=== PATIENT | female | born 1980 | race Caucasian/White ===

== ENCOUNTER 2020-05-23 15:03 | Emergency (ER) | payer OTHER, SELFPAY ==
[2020-05-23 15:06] VITALS: BP 134/82; PULSE 94; RESP 18; TEMP 36.7; O2SAT 94; BMI 27.4
--- NOTE | 2020-05-23 15:14 | CT_ITS ---
WS: [id number] CT HEAD NONCONTRAST HISTORY: Symptoms of Acute Stroke, weakness and dizziness for 3 days. TECHNIQUE: Contiguous axial imaging performed through the brain in 2.5 mm imaging. Bone and soft tiss ue windows. Sagittal and coronal reformats reviewed. All CT scans at [facility] use at le ast one of these dose optimization techniques: automated exposure control; mA and/or kV adjustment pe r patient size (includes targeted exams where dose is matched to clinical indication); or iterative r econstruction. DLP: 824.66 mGy.cm COMPARISON: 04/23/2017 No acute intracranial hemorrhage, midline shift or mass effect. No atrophy or prior infarcts or herniation. Ventricles: Normal size with no hydrocephalus. No inferior displacement of cerebellar tonsils. Clivus and pituitary gland are negative. Paranasal sinuses: As visualized are clear. Mastoid air cells: Well pneumatized. Calvarium and scalp: Skull is intact with no soft tissue edema or swelling. CT/CT head wo con* [id number] IMPRESSION: Negative head CT.
--- NOTE | 2020-05-23 15:14 | ECG_ITS ---
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 Measurements Intervals [place] Rate: 75 P: 60 NC: 134 QRS: 70 QRSD: 87 T: 44 QT: 381 QTc: 428 Interpretive Statements SINUS RHYTHM Compared to ECG 12/15/2017 20:36:53 No significant changes Electronically Signed On 05-23-2020 18:59:33 CDT by Ana Willoughby M.D. [email or web address].[email or web address]/NU/[id number] f
[2020-05-23 15:22] LABS: Add Urine Microscopic? NO
--- NOTE | 2020-05-23 15:25 | W.ED.WEAKNES ---
HPI - Weakness General: Chief complaint: Weakness Stated complaint: possible tia/sent by doctor Time Seen by Provider: 05/23/20 15:07 History of Present Illness: HPI Narrative: 39-year-old female comes in complaining of right-sided numbness and tingling she has a little bit of weakness in her right leg and hand is actually gotten better than what it was. She states the symptoms started early this morning. She presents about 10 to 12 hours after onset. Initial evaluation NIH stroke score of 1, however she does not any difficulty with [id number] but has a very slight perceptible weakness in the right leg but no other weakness. MD Complaint: focal weakness, numbness and tingling Onset (ago): day(s) Duration: intermittent Location: LUE and left hand Migration: none Severity: mild Quality: tingling and numbness Relieving factors: none Exacerbating factors: none Associated symptoms: Denies chest pain, chills, confusion, melena, decreased appetite, diaphoresis, dysuria, easy bruising, fever(s), headache(s), myalgias, nausea, short of breath, syncope or vomiting Review of Systems Const: Denies: fever(s), chills or diaphoresis ENMT: Denies: throat pain, ear or mastoid pain, nasal discharge or nasal congestion Card: Denies: chest pain or syncope Resp: Denies: dyspnea, productive cough or non-productive cough GI: Denies: nausea, vomiting or melena : Denies: dysuria Skin/Breast: Denies: rash or pruritus Neuro: Denies: headache(s) or confusion Memo/Lymph: Denies: easy bruising PFSH ED PFSH: Medical History No pertinent past medical history Surgical History Hx of section Hx of cholecystectomy Hx of hysterectomy, total Family History Father Diabetes Social History Smoking and tobacco status: current every day smoker cigarettes Packs smoked per day: 0.5 Second hand smoke exposure: Yes Alcohol intake: never Desire information about alcohol rehabilitation?: No Desire information about substance/drug rehabilitation?: No Adopted: No Caregiver/support person: No Lives independently: Yes Household members: spouse Housing: House Marital status: Number of children: 6 Pets and animals: No History of recent travel: No Physical Exam Const: COMMON NORMALS: no acute distress GENERAL APPEARANCE: cooperative and comfortable ORIENTATION/CONSCIOUSNESS: Yes awake, Yes oriented to person, Yes oriented to place and Yes oriented to time HENMT: COMMON NORMALS: normocephalic, atraumatic and hearing grossly normal bilaterally HEAD & SCALP: normocephalic and atraumatic Eye: COMMON NORMALS: Equal, round and reactive pupils present, EOMs intact bilaterally, conjunctivae normal and no scleral icterus CONJUNCTIVA: Yes conjunctivae normal PUPIL: Yes Equal, round and reactive pupils present Neck/C-Spine: COMMON NORMALS: full ROM, no lymphadenopathy, supple and no JVD Lymph: LYMPHATIC: no lymphadenopathy noted and no lymphedema noted Resp: COMMON NORMALS: normal respiratory effort, No retractions, No use of accessory muscles and clear to auscultation bilaterally AUSCULTATION: clear to auscultation bilaterally Cardio: COMMON NORMALS: no JVD, regular rate, regular rhythm and No murmurs present (Cardio) RATE: regular rate RHYTHM: regular rhythm GI: COMMON NORMALS: Soft to palpation and No hepatosplenomegaly present AUSCULTATION: Yes normoactive bowel sounds PALPATION: Yes Soft to palpation, No Tenderness to palpation present (GI), No Guarding due to palpation present (GI) and Yes No hepatosplenomegaly present Extremity: COMMON NORMALS: normal to inspection, capillary refill normal, no clubbing, cyanosis or edema, no calf tenderness and no pedal edema Neuro: SENSORIUM/ORIENTATION: Yes oriented to person, Yes oriented to place and Yes oriented to time OTHER: Normal sensation right compared to left patient has ability to do [id number] bilaterally but has a little bit of perceptible weakness in the right leg no weakness in the right arm. Skin: COMMON NORMALS: no rashes or lesions noted GENERAL SKIN EXAM: no rashes or lesions noted Course Vital Signs: Vital signs: Vital Signs Temperature 98.1 F 05/23/20 15:06 Pulse Rate 58 L 05/23/20 17:13 Respiratory Rate 14 05/23/20 17:13 Blood Pressure 121/71 08/17/20 17:13 Pulse Oximetry 97 05/23/20 17:13 MDM - Weakness MDM Narrative: Medical decision making narrative: Offered patient option of being placed on observation for this for further evaluation she declines vital signs are good. We will start her on a baby aspirin daily and set her up for MRI and neurology evaluation return if has any further problems or change in symptoms Lab Data: Labs: Lab Results 05/23/20 05/23/20 05/23/20 Range/Units 15:16 15:34 15:34 WBC 10.1 H (4.0-10.0) 10^3/ uL RBC 5.17 (4.1-5.3) 10^6/u L Hgb 15.4 H (11.5-15.3) g/dL Hct 47.8 H (37.0-47.0) % MCV 92.5 (81-99) fL MCH 29.8 (28.0-34.0) pg MCHC 32.2 (30.0-36.0) g/dL RDW 12.9 (12.1-15.1) % Plt Count 316 (130-400) 10^3/c mm MPV 10.0 (7.4-10.4) fL Neut % (Auto) 64.0 % Lymph % (Auto) 28.6 % [place] % (Auto) 5.2 % Eos % (Auto) 1.1 % Baso % (Auto) 0.8 % Neut # (Auto) 6.48 (1.8-7.7) 10^3/u L Lymph # (Auto) 2.9 (0.8-4.8) 10^3/u L [place] # (Auto) 0.5 (0.2-0.9) 10^3/u L Eos # (Auto) 0.1 (0.0-0.8) 10^3/u L Baso # (Auto) 0.1 (0.0-0.1) 10^3/u L Nucleated RBC % (a uto) 0 % Nucleated RBCs # 0.0 /100WBC PT 13.20 (12.1-14.9) SECO NDS INR 0.97 (0.8-1.2) APTT 28.4 (23.9-36.7) SECO NDS Sodium (136-145) mmol/L Potassium (3.5-5.1) mmol/L Chloride (98-107) mmol/L Carbon Dioxide (22-29) mmol/L Anion Gap (5-19) BUN (6-20) mg/dL Creatinine (0.5-0.9) mg/dL GFR Calculation (90-130) mL/min Glucose (65-115) mg/dL POC Glucose (70-110) mg/dL Calculated Osmolal ity (285-295) mOsm/k g Calcium (8.5-10.5) mg/dL Total Bilirubin (0.15-1.2) mg/dL AST (0-32) U/L ALT (0-33) U/L Alkaline Phosphata se (35-105) IU/L Total Protein (6.6-8.7) g/dL Albumin (3.5-5.2) g/dL Globulin (1.3-4.6) g/dL Urine Color Yellow (Yellow) Urine Appearance Clear (CLEAR) Urine pH 6 (5-7) Ur Specific Gravit y 1.010 (1.005-1.030) Urine Protein Neg (Negative) Urine Glucose (UA) Norm (Normal) Urine Ketones Negative (Negative) Urine Blood Neg (Negative) Urine Nitrate Negative (Negative) Urine Bilirubin Neg (NEGATIVE) Urine Urobilinogen Norm (Negative) mg/dL Ur Leukocyte Dominique ase Negative (Negative) 05/23/20 05/23/20 Range/Units 15:34 15:45 WBC (4.0-10.0) 10^3/ uL RBC (4.1-5.3) 10^6/u L Hgb (11.5-15.3) g/dL Hct (37.0-47.0) % MCV (81-99) fL MCH (28.0-34.0) pg MCHC (30.0-36.0) g/dL RDW (12.1-15.1) % Plt Count (130-400) 10^3/c mm MPV (7.4-10.4) fL Neut % (Auto) % Lymph % (Auto) % [place] % (Auto) % Eos % (Auto) % Baso % (Auto) % Neut # (Auto) (1.8-7.7) 10^3/u L Lymph # (Auto) (0.8-4.8) 10^3/u L [place] # (Auto) (0.2-0.9) 10^3/u L Eos # (Auto) (0.0-0.8) 10^3/u L Baso # (Auto) (0.0-0.1) 10^3/u L Nucleated RBC % (a uto) % Nucleated RBCs # /100WBC PT (12.1-14.9) SECO NDS INR (0.8-1.2) APTT (23.9-36.7) SECO NDS Sodium 140 (136-145) mmol/L Potassium 4.0 (3.5-5.1) mmol/L Chloride 106 (98-107) mmol/L Carbon Dioxide 24 (22-29) mmol/L Anion Gap 14.0 (5-19) BUN 12 (6-20) mg/dL Creatinine 0.7 (0.5-0.9) mg/dL GFR Calculation 93.2 (90-130) mL/min Glucose 112 (65-115) mg/dL POC Glucose 106 (70-110) mg/dL Calculated Osmolal ity 287 (285-295) mOsm/k g Calcium 8.9 (8.5-10.5) mg/dL Total Bilirubin 0.2 (0.15-1.2) mg/dL AST 19 (0-32) U/L ALT 16 (0-33) U/L Alkaline Phosphata se 70 (35-105) IU/L Total Protein 7.0 (6.6-8.7) g/dL Albumin 4.3 (3.5-5.2) g/dL Globulin 2.7 (1.3-4.6) g/dL Urine Color (Yellow) Urine Appearance (CLEAR) Urine pH (5-7) Ur Specific Gravit y (1.005-1.030) Urine Protein (Negative) Urine Glucose (UA) (Normal) Urine Ketones (Negative) Urine Blood (Negative) Urine Nitrate (Negative) Urine Bilirubin (NEGATIVE) Urine Urobilinogen (Negative) mg/dL Ur Leukocyte Dominique ase (Negative) Discharge Plan Discharge Patient Disposition: Home Clinical Impression: Right leg weakness Condition: Stable Prescriptions: New aspirin 81 mg tablet,delayed release (DR/EC) 81 mg PO DAILY Qty: 30 RF: 0 No Action Tylenol 325 mg Tablet 325 mg PO QID PRN (Reason: Pain) RF: 0 ibuprofen 200 mg Tablet 200 mg PO Q6H PRN (Reason: Pain) RF: 0 Discharge Orders: Discharge Order (Routine); Ordered 05/23/20 Ordered By: Alejandro Fontenot Referrals: Desmond Diehl, [employer]DLE[employer] DEVELOPER-C [Primary Care Provider] - Discharge Diet: Usual diet Discharge Activity: Resume usual activity Activity Restrictions/Additional Instructions: Case management will call to set up a MRI of the head and follow-up with neurology Discharge Date/Time: 05/23/20 17:14 Coding Level of Care Code ED Trick Rodeo Rider for g Fwd Exam Comprehensive NIH stroke score NIHSS Level Of Consciousness - 1a: 0 Level Of Consciousness Questions - 1b: Both Correct Level Of Consciousness Commands - 1c: Both Correct Best Gaze - 2: Normal Visual Fleming - 3: No Visual Loss Facial Palsy - 4: Normal Motor Arm Right - 5: No Drift Motor Arm Left - 5: No Drift Motor Leg Right - 6: No Drift Motor Leg Left - 6: No Drift Limb Ataxia - 7: Present In One Limb Sensory - 8: Normal Best Language - 9: No Aphasia Dysarthia - 10: Normal Extinction And Inattention - 11: 0 Score Total Score: 1
[2020-05-23 15:38] VITALS: BP 129/89; PULSE 66; RESP 18; O2SAT 98
[2020-05-23 15:39] LABS: Basophils # 0.1 10^3/uL (0.0-0.1); Basophils % 0.8 %; Eosinophils # 0.1 10^3/uL (0.0-0.8); Eosinophils % 1.1 %; Hematocrit 47.8 % (37.0-47.0); Hemoglobin 15.4 g/dL (11.5-15.3); Lymphocytes # 2.9 10^3/uL (0.8-4.8); Lymphocytes % 28.6 %; Mean Corpuscular HGB Conc 32.2 g/dL (30.0-36.0); Mean Corpuscular Hemoglobin 29.8 pg (28.0-34.0); Mean Corpuscular Volume 92.5 fL (81-99); Monocytes # 0.5 10^3/uL (0.2-0.9); Monocytes % 5.2 %; Neutrophils # 6.48 10^3/uL (1.8-7.7); Nucleated Red Blood Cells % 0 %; Platelet Count 316 10^3/cmm (130-400); Red Blood Count 5.17 10^6/uL (4.1-5.3); Red Cell Distribution Width 12.9 % (12.1-15.1); White Blood Count 10.1 10^3/uL (4.0-10.0)
[2020-05-23 15:41] VITALS: O2SAT 99
[2020-05-23 15:42] LABS: Bilirubin Urine Neg (NEGATIVE); Blood Urine Neg (Negative); Glucose Urine UA Norm (Normal); Ketones Urine Negative (Negative); Leukocyte Esterase Urine Negative (Negative); Nitrate Urine Negative (Negative); Protein Urine Neg (Negative); Urine Appearance Clear (CLEAR); Urine Color Yellow (Yellow); Urobilinogen Urine Norm (Negative); pH Urine 6 (5-7)
[2020-05-23 15:58] LABS: Glucose Point of Care 106 mg/dL (70-110)
[2020-05-23 16:08] LABS: INR 0.97 (0.8-1.2)
[2020-05-23 16:09] LABS: Partial Thromboplastin Time 28.4 SECONDS (23.9-36.7)
[2020-05-23 16:10] LABS: Alanine Aminotransferase 16 U/L (0-33); Albumin Level 4.3 g/dL (3.5-5.2); Alkaline Phosphatase 70 IU/L (35-105); Aspartate Amino Transferase 19 U/L (0-32); Blood Urea Nitrogen 12 mg/dL (6-20); Calcium 8.9 mg/dL (8.5-10.5); Carbon Dioxide 24 mmol/L (22-29); Chloride 106 mmol/L (98-107); Globulin 2.7 g/dL (1.3-4.6); Glomerular Filtration Rate 93.2 mL/min (90-130); Glucose 112 mg/dL (65-115); Osmolality Calculated 287 mOsm/kg (285-295); Sodium 140 mmol/L (136-145); Total Bilirubin 0.2 mg/dL (0.15-1.2)
[2020-05-23 17:13] VITALS: BP 121/71; PULSE 58; RESP 14; O2SAT 97
--- NOTE | 2020-05-24 13:39 | DCPLANNER ---
park recreation manager had message to schedule an outpatient MRI for patient. park recreation manager faxed order to centralized scheduling. Centralized scheduling will call patient with appointment information. park recreation manager will call for appointment information.
--- NOTE | 2020-05-27 13:47 | DCPLANNER ---
Patient has a follow up appointment for an MRI scheduled for Monday, June 08, 2020 at 11:45. environmental research project manager called the office of Dr. Raya, spoke with Peg, was told that patient can be seen by Aurelia, will have to speak with Maritza to schedule appointment. environmental research project manager will call and speak with Maritza next week.
--- NOTE | 2020-06-08 12:33 | DCPLANNER ---
Addendum entered by Ana Mccabe 06/08/20 14:59: Domo from the office of Aurelia Busby called clinical case manager stating that a follow up appointment has been scheduled for June at 9:00, clinic called patient and informed patient of the scheduled appointment. Original Note: graphic manager called the neurology clinic, spoke with Domo with [facility] Bus[facility]. graphic manager was told that patients information would be printed and reviewed. Clinic will call patient with appointment information.
--- NOTE | 2020-06-08 12:35 | DCPLANNER ---
Patient did attend MRI scheduled for 06.08.20.
--- NOTE | 2020-07-08 11:01 | DCPLANNER ---
Patient had a follow up appointment scheduled for 06.16.[address] Raya - patient did attend appointment.
== END 2020-05-23 17:14 | disposition home or self-care (01) ==
PROVIDERS: Emergency Provider Family Medicine; PCP Nurse Practitioner
DX: R53.1 Weakness (principal); F17.210 Nicotine dependence, cigarettes, uncomplicated
CPT/HCPCS: 12345; 36415; 36416; 70450; 80053; 81003; 82962; 85025; 85610; 85730; 93005; 99283; 99284

== ENCOUNTER 2020-06-08 10:00 | Outpatient (CLI) | payer OTHER, SELFPAY ==
--- NOTE | 2020-06-08 10:07 | MR_ITS ---
WS: [id number] MRI BRAIN WITH AND WITHOUT CONTRAST HISTORY: RIGHT SIDED NUMBNESS COMPARISON: 05/23/2020 TECHNIQUE: Multiplanar imaging performed through the brain with Prohance 17 ml's IV. No acute infarcts are seen. Dunn-white matter differentiation is well preserved. Bearing minimal T2 a nd FLAIR signal subcortical signal intensities. No prior infarcts. No mass effect. No susceptibility artifacts or prior lacunar infarcts. Ventricles and extra-axial spaces are normal. Clivus and pituitary gland are normal. Visualized posterior fossa and brainstem are also normal. Postcontrast images are negative for masses or vascular malformations. Dural venous sinuses are normal. Paranasal sinuses: Small mucous retention cyst floor of the LEFT maxillary sinus. Mastoid air cells: Normal. Calvarium and scalp: Normal. MR/MR head wo/w con [id number] IMPRESSION: 1. No acute infarct. 2. No enhancing masses. 3. No abnormalities of significance detected.
== END 2020-06-08 10:01 | disposition home or self-care (01) ==
LOC: RADSHAW 10:05
PROVIDERS: PCP Nurse Practitioner; Visit Provider Family Medicine
DX: R20.0 Anesthesia of skin (principal)
CPT/HCPCS: 70553; A9579

== ENCOUNTER → 2020-06-16 08:54 | Outpatient (BNVA) | payer OTHER, SELFPAY | PROVIDERS: PCP Nurse Practitioner; Referring Provider Family Medicine; Visit Provider Licensed Practical Nurse | DX: R53.1 Weakness (principal); R51 Headache; F17.210 Nicotine dependence, cigarettes, uncomplicated | CPT/HCPCS: 99204 ==

== ENCOUNTER 2020-06-16 10:09 | Outpatient (CLI) | payer OTHER, SELFPAY ==
[2020-06-16 11:17] LABS: C Reactive Protein 5.3 mg/L (0.0-4.9); Vitamin B12 774 pg/mL (232-1245)
[2020-06-16 11:31] LABS: Erythrocyte Sedimentation Rate 8 mm/hr (0-15)
== END 2020-06-16 10:10 | disposition home or self-care (01) ==
LOC: LAB 10:13
PROVIDERS: Visit Provider Licensed Practical Nurse
DX: R51 Headache (principal); R53.1 Weakness
CPT/HCPCS: 36415; 82607; 84443; 85651; 86140

== ENCOUNTER 2020-06-29 09:43 | Outpatient (CLI) | payer OTHER, SELFPAY ==
--- NOTE | 2020-06-29 10:00 | CT_ITS ---
WS: [id number] CT CERVICAL SPINE HISTORY: Gait instability TECHNIQUE: Contiguous 2.5 mm axial imaging performed through the entire cervical spine. Sagittal and coronal reformats also performed. All CT scans at [facility] use at least one of these do se optimization techniques: automated exposure control; mA and/or kV adjustment per patient size (inc ludes targeted exams where dose is matched to clinical indication); or iterative reconstruction. DLP: 1512.63 mGycm COMPARISON: None available. Mild LEFT convex curvature cervical spine. Posterior alignment is normal. Craniocervical junction, at lantodental interval and C1-C2 alignment is normal. C2-C3: Shallow central disc protrusion. C3-C4: Minimal hypertrophic osteophyte formation posterior LEFT vertebral body. No stenosis. C4-C5: Normal. C5-C6: Normal. C6-C7: Normal. C7-T1: Normal. Soft tissues are normal. Mild thyromegaly. Lung apices are clear. CT/CT cervical spin wo con* [id number] IMPRESSION: 1. No cervical spine stenosis or disc protrusions or significant herniation. 2. Very mild LEFT convex curvature cervical spine. 3. Thyromegaly, unchanged since 06/02/2016.
== END 2020-06-29 09:44 | disposition home or self-care (01) ==
LOC: RADWPI 09:47
PROVIDERS: Family Provider Nurse Practitioner; PCP Nurse Practitioner; Visit Provider Licensed Practical Nurse
DX: R26.89 Other abnormalities of gait and mobility (principal); E01.0 Iodine-deficiency related diffuse (endemic) goiter; M43.9 Deforming dorsopathy, unspecified
CPT/HCPCS: 72125

== ENCOUNTER → 2020-06-30 08:00 | Outpatient (BNVA) | payer OTHER, SELFPAY | PROVIDERS: Family Provider Nurse Practitioner; PCP Nurse Practitioner; Visit Provider Licensed Practical Nurse | DX: R53.1 Weakness (principal); M50.90 Cervical disc disorder, unspecified, unspecified cervical region; R51 Headache; F17.210 Nicotine dependence, cigarettes, uncomplicated | CPT/HCPCS: 99213 ==

== ENCOUNTER 2020-07-06 13:16 | Outpatient (CLI) | payer OTHER, SELFPAY ==
--- NOTE | 2020-07-06 13:00 | XR_ITS ---
WS: [id number] CERVICAL SPINE FLEXION EXTENSION TECHNIQUE: 3 views of the cervical spine: lateral neutral, flexion and extension views. CLINICAL INFORMATION: Neck pain COMPARISON: None. FINDINGS: Straightening of the normal cervical lordosis. Slight anterolisthesis C3 on C4 and C4 on C5 measuring 3.5 mm at C3-C4 and 2.7 mm at C4-5. This returns to neutral on extension. Posterior elements are normal. No other significant findings. XR/XR cervical spine fl/ex [id number] IMPRESSION: Mild flexion instability at C3-4 and C4-5 described above.
== END 2020-07-06 13:17 | disposition home or self-care (01) ==
LOC: RADWPI 13:17
PROVIDERS: Family Provider Nurse Practitioner; PCP Nurse Practitioner; Visit Provider Licensed Practical Nurse
DX: M54.2 Cervicalgia (principal); M53.2X2 Spinal instabilities, cervical region
CPT/HCPCS: 72040

== ENCOUNTER 2020-08-18 09:49 | Emergency (ER) | payer OTHER, SELFPAY ==
[2020-08-18 09:55] VITALS: BP 144/89; PULSE 75; RESP 18; TEMP 36.8; O2SAT 98; BMI 31.2
--- NOTE | 2020-08-18 10:06 | ECG_ITS ---
[facility] Test Date: 2020-08-18 Pat Name: Leny Hinojosa Department: Room: Gender: Female Chaperone: : 1980 Requested By: Frank Cox Order Number: [id number] Benjamin MD: Ajay Huizar M.D. Measurements Intervals [place] Rate: 62 P: 70 GA: 142 QRS: 90 QRSD: 87 T: 59 QT: 405 QTc: 412 Interpretive Statements SINUS RHYTHM Compared to ECG 05/23/2020 15:26:26 No significant changes Electronically Signed On 08-19-2020 20:06:07 ROLL COATING MACHINE OPERATOR by Ajay Huizar M.D. [email or web address] medical [email or web address] Medical [email or web address]/store/OM/[id number]
--- NOTE | 2020-08-18 10:06 | XR_ITS ---
WS: [id number] Portable AP upright chest, 08/18/2020 Clinical Data: cp Comparison: PA and lateral chest, 12/15/2017. Findings: No nodules, masses or effusions are seen. The heart is normal. The pulmonary vascularity is not increased. No pneumonia or pneumothorax is seen. XR/XR chest 1V portable [id number] Impression: Negative chest.
--- NOTE | 2020-08-18 10:14 | W.ED.GENADLT ---
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 She states she been having pain over left sternum since then. She states she thinks she pulled a muscle as it is much worse with lifting or moving. She states worse with palpation to she states pain is sharp in nature and rates a 5 out of 10. Denies any shortness of breath. Associated symptoms: Reports chest pain; Deny dyspnea, headache(s), nausea, rash or vomiting Review of Systems Const: Denies: fever(s), chills, body aches or change in appetite Eyes: Denies: blurry vision or eye discomfort ENMT: Denies: throat pain or dental pain Card: Reports: chest pain Resp: Denies: dyspnea GI: Denies: abdominal pain, nausea, vomiting or diarrhea : Denies: dysuria Musc: Denies: neck pain or back pain Skin/Breast: Denies: rash Neuro: Denies: headache(s) Psych: Denies: depression Memo/Lymph: Denies: easy bruising All/Imm: Denies: urticaria PFSH ED PFSH: Medical History Acute right-sided weakness Headache Spondylolisthesis, acquired Surgical History Hx of section Hx of cholecystectomy Hx of hysterectomy, total Family History Father Diabetes Social History Smoking and tobacco status: current every day smoker cigarettes Packs smoked per day: 0.5 Alcohol intake: never Household members: spouse and children Marital status: Current occupational status: employed 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 History of recent travel: No Physical Exam Const: COMMON NORMALS: no acute distress, patient oriented x3 and healthy appearing HENMT: COMMON NORMALS: normocephalic and atraumatic HEAD & SCALP: normocephalic and atraumatic Eye: COMMON NORMALS: Equal, round and reactive pupils present and EOMs intact bilaterally PUPIL: Yes Equal, round and reactive pupils present Neck/C-Spine: COMMON NORMALS: full ROM and supple Chest: COMMONS NORMALS: normal inspection of the chest OTHER: Point tender over left chest Resp: COMMON NORMALS: normal respiratory effort, No retractions, No use of accessory muscles and clear to auscultation bilaterally AUSCULTATION: clear to auscultation bilaterally Cardio: COMMON NORMALS: regular rate, regular rhythm and No murmurs present (Cardio) RATE: regular rate RHYTHM: regular rhythm GI: COMMON NORMALS: Normal to inspection, nondistended, normoactive bowel sounds present, Soft to palpation, non-tender and no masses PALPATION: Yes Soft to palpation Extremity: COMMON NORMALS: normal to inspection and full ROM Neuro: COMMON NORMALS: patient oriented x3, moves all extremities and no focal motor deficits Psych: COMMON NORMALS: mental status grossly normal, Normal thought process present and cooperative THOUGHT PROCESS: Normal thought process present Skin: COMMON NORMALS: no rashes or lesions noted and no wounds GENERAL SKIN EXAM: no rashes or lesions noted Course Vital Signs: Vital signs: Vital Signs Temperature 98.2 F 08/18/20 09:55 Pulse Rate 75 08/18/20 09:55 Respiratory Rate 18 08/18/20 09:55 Blood Pressure 144/89 08/18/20 09:55 Pulse Oximetry 98 08/18/20 09:55 MDM - General Adult MDM Narrative: Medical decision making narrative: Leny presents here with chest pain that is muscular in nature. We will place her on anti-inflammatories and muscle relaxants. She is to ice as well. She is to follow-up with PCP and return if worsening. She has no signs of cardiac cause. EKG Data^: EKG 1: Attestation: I personally reviewed and interpreted this EKG as follows: EKG interpretation date: 08/18/20 EKG interpretation time: 10:32 Interpretation: nsr hr [address] or t wave abnormalities qrs 87 qtc 409 Discharge Plan Discharge Patient Disposition: Home Clinical Impression: Chest wall pain Condition: Stable Prescriptions: New Robaxin-750 750 mg tablet 750 mg PO Q6H Qty: 30 RF: 0 Naprosyn 500 mg tablet 500 mg PO BID PRN (Reason: pain) Qty: 20 RF: 0 No Action Tylenol 325 mg Tablet 325 mg PO QID PRN (Reason: Pain) RF: 0 ibuprofen 200 mg Tablet 200 mg PO Q6H PRN (Reason: Pain) RF: 0 aspirin 81 mg tablet,delayed release (DR/EC) 81 mg PO DAILY Qty: 30 RF: 0 Discharge Orders: Discharge Order (Routine); Ordered 08/18/20 Ordered By: Frank Cox Referrals: Desmond Diehl FNP-C [Primary Care Provider] - 1-3 days Discharge Diet: Advance as tolerated Discharge Activity: Resume usual activity Patient Instructions: Chest Pain (ED) Coding Level of Care Code ED Certified Ophthalmic Surgical Assistant for Guillermo Fwd Exam Comprehensive
== END 2020-08-18 10:43 | disposition home or self-care (01) ==
PROVIDERS: Emergency Provider Emergency Medicine; PCP Nurse Practitioner
DX: R07.89 Other chest pain (principal); Z79.82 Long term (current) use of aspirin; F17.210 Nicotine dependence, cigarettes, uncomplicated
CPT/HCPCS: 12345; 71045; 93005; 99281; 99283

== ENCOUNTER 2021-07-05 10:11 | Outpatient (CLI) | payer OTHER, SELFPAY ==
--- NOTE | 2021-07-05 10:18 | XR_ITS ---
WS: [id number] Exam: XR lumbar spine 2-3V* [id number] Date/Time of Exam: 07/05/2021 10:34 AM Reason For Exam: LS PAIN POSITIVE SLR W/DECREASED ROM Findings: In the AP projection, the lumbar spine is straight. The sacroiliac joints are open. The facet struc tures are bilaterally symmetrical. In the lateral projection, the lumbar curve is well maintained. The intervertebral disc spaces are intact. No fractures or anomalies of the lumbar spine are noted. XR/XR lumbar spine 2-3V* [id number] IMPRESSION: Negative lumbar spine.
== END 2021-07-05 10:12 | disposition home or self-care (01) ==
PROVIDERS: PCP Nurse Practitioner; Visit Provider Dermatology
DX: Z02.71 Encounter for disability determination (principal); M54.5 Low back pain
CPT/HCPCS: 72100

== ENCOUNTER 2021-07-14 09:25 | Outpatient (CLI) | payer SELFPAY ==
--- NOTE | 2021-07-14 09:37 | XR_ITS ---
WS: [id number] RIGHT KNEE: 3 VIEW(S) TECHNIQUE: AP, oblique(s) and lateral. HISTORY: M25.561 - Pain in right knee COMPARISON: None available. No fracture or dislocation. No joint space narrowing or osteophytes. No joint effusion. No soft tissue abnormality. XR/XR knee RT 3V* [id number] IMPRESSION: Normal RIGHT knee.
== END 2021-07-14 09:26 | disposition home or self-care (01) ==
PROVIDERS: PCP Nurse Practitioner; Visit Provider Nurse Practitioner
DX: M25.561 Pain in right knee (principal)
CPT/HCPCS: 73562

== ENCOUNTER → 2022-04-05 10:53 | Outpatient (BNVA) | payer SELFPAY | PROVIDERS: PCP Nurse Practitioner; Visit Provider Nurse Practitioner Family | DX: N64.4 Mastodynia (principal); N63.20 Unspecified lump in the left breast, unspecified quadrant | CPT/HCPCS: 80053 ==

== ENCOUNTER 2022-04-17 14:57 | Outpatient (CLI) | payer SELFPAY ==
--- NOTE | 2022-04-17 15:10 | MM_ITS ---
WS: [id number] BILATERAL 3D TOMOSYNTHESIS DIGITAL DIAGNOSTIC MAMMOGRAPHY WITH CAD CLINICAL INFORMATION: left breast lump, pain and swelling HISTORY: LEFT breast pain COMPARISON: None. TECHNIQUE: Bilateral CC, MLO, and ML views. FINDINGS: The breasts are composed of heterogeneous fibroglandular density, which can limit the detection of sm all underlying mass lesions. Palpable marker upper outer LEFT breast. Dense underlying parenchymal ti ssue. Ultrasound of this area described below. RIGHT breast is unremarkable in appearance. ULTRASOUND BREAST LEFT TECHNIQUE: Ultrasound LEFT breast focused area of concern. CLINICAL INFORMATION: left breast lump, pain and swelling FINDINGS: Ultrasound LEFT breast at the 12-6 position. A few incidental dilated ducts compatible with ductal ec cailin. No abnormalities at the 12 to 1:00 position except underlying dense parenchymal tissue. Complex cyst or debris-filled duct at the 2:00 position 1 cm from the nipple measuring 10 x 4 x 5 mm. This is probably benign and recommend 6 month follow-up of this area. Incidental simple cyst at the 3:00 position 1 cm from the nipple measuring 6.4 x 3.3 x 6.6 mm. MM/[place] [id number] IMPRESSION: BI-RADS: 3-Probably Benign FOLLOW UP: 6 Month Follow-up Recommend 6 month follow-up LEFT diagnostic mammography and ultrasound of the d ense breast tissue upper outer LEFT breast area of pain and complex cyst or jason ris-filled duct at the 2:00 position 1 cm from the nipple in the area of pain.
== END 2022-04-17 14:58 | disposition home or self-care (01) ==
PROVIDERS: PCP Nurse Practitioner Family; Visit Provider Nurse Practitioner Family
DX: N63.20 Unspecified lump in the left breast, unspecified quadrant (principal); R92.8 Other abnormal and inconclusive findings on diagnostic imaging of breast; N60.09 Solitary cyst of unspecified breast
CPT/HCPCS: 76642; 77062

== ENCOUNTER 2022-08-15 16:43 | Emergency (ER) | payer SELFPAY ==
--- NOTE | 2022-08-15 16:46 | XRR_ITS ---
PROCEDURE INFORMATION: Exam: XR Chest Exam date and time: 08/15/2022 5:50 PM Age: 41 years old Clinical indication: Pain; Angina pectoris and chest pressure; Additional info: Chest pain TECHNIQUE: Imaging protocol: Radiologic exam of the chest. Views: 1 view. COMPARISON: CR XR chest 1V portable [id number] 08/18/2020 10:08 AM FINDINGS: Lungs: Unremarkable. No consolidation. Pleural spaces: Unremarkable. No pleural effusion. No pneumothorax. Heart/Mediastinum: Unremarkable. No cardiomegaly. Bones/joints: Unremarkable. XR/XR chest 1V portable [id number] IMPRESSION: No acute findings.
[2022-08-15 16:50] VITALS: BP 145/73; PULSE 81; RESP 16; TEMP 36.8; O2SAT 99; BMI 29.9
[2022-08-15 17:05] VITALS: BP 143/71; PULSE 79; RESP 16; O2SAT 98
--- NOTE | 2022-08-15 17:10 | ECG_ITS ---
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 Measurements Intervals [place] Rate: 67 P: 55 VT: 143 QRS: 64 QRSD: 88 T: 42 QT: 395 QTc: 419 Interpretive Statements SINUS RHYTHM Compared to ECG 08/18/2020 10:32:54 No significant changes Electronically Signed On 08-16-2022 5:26:44 DIRECT SALES PROFESSIONAL by Kandy Clark M.D. [id number]
--- NOTE | 2022-08-15 17:12 | W.ED.CHESTPA ---
HPI - Chest Pain General: Chief Complaint: Chest Pain Stated Complaint: CP Time Seen by Provider: 08/15/22 16:45 Source: patient Mode of arrival: ambulatory History of Present Illness: 41-year-old female presents emergency room complaining of pain that began in her neck and radiated down into her left arm her fingers began to feel numb she had a little indigestion after that no actual chest pain her only symptoms now are in the arm. She has had some problems with her neck in the past no previous surgeries. States she had an MRI about a year ago. There is a CT in the old records but no MRI of the neck. There is an MRI of the head. CT did not show any stenosis or significant abnormality. Onset (ago): minute(s) Timing of current episode: episodic Prior episodes: Yes Onset: during rest Pain location: other (Neck radiating to the left arm) Quality: sharp Relieving factors: nothing Exacerbating factors: nothing Associated symptoms: Reports diaphoresis; Deny abdominal pain, dyspnea, fever(s), leg edema, nausea, palpitations, sense of impending doom, syncope or vomiting Treatment prior to arrival: none Review of Systems Const: Reports: diaphoresis; Denies: fever(s), chills, fatigue or malaise ENMT: Denies: throat pain, ear or mastoid pain, nasal discharge or nasal congestion Card: Denies: chest pain, palpitations or syncope Resp: Denies: dyspnea GI: Denies: abdominal pain, nausea or vomiting : Denies: flank pain, difficulty voiding, dysuria, urinary frequency or urinary urgency Musc: Reports: neck pain and extremity pain Skin/Breast: Denies: rash or pruritus [facility] ED PFSH: Medical History Acute right-sided weakness Cigarette smoker Headache Spondylolisthesis, acquired Surgical History Hx of section Hx of cholecystectomy Hx of hysterectomy, total Family History Father Diabetes Social History Smoking and tobacco status: current every day smoker (quit cig 3 months ago, but currently vapes) cigarettes Packs smoked per day: 0.5 Second hand smoke exposure: No Smoking risk assessment/counseling performed?: Yes Alcohol intake: never Desire information about alcohol rehabilitation?: No Counseling given: No Desire information about substance/drug rehabilitation?: No Counseling given: No Adopted: No Caregiver/support person: No Lives independently: Yes Household members: spouse and children Housing: House Marital status: Number of children: 6 service: No Current occupational status: employed Current occupation: [employer] Pets and animals: Yes History of recent travel: No Current gender identity: Female Physical Exam Const: GENERAL APPEARANCE: cooperative and comfortable ORIENTATION/CONSCIOUSNESS: Yes awake, Yes oriented to person, Yes oriented to place and Yes oriented to time HENMT: COMMON NORMALS: normocephalic, atraumatic and hearing grossly normal bilaterally HEAD & SCALP: normocephalic and atraumatic Neck/C-Spine: COMMON NORMALS: full ROM, no lymphadenopathy and supple Resp: COMMON NORMALS: normal respiratory effort, No retractions, No use of accessory muscles and clear to auscultation bilaterally AUSCULTATION: clear to auscultation bilaterally Cardio: COMMON NORMALS: regular rate, regular rhythm and No murmurs present (Cardio) RATE: regular rate RHYTHM: regular rhythm GI: COMMON NORMALS: Soft to palpation and No hepatosplenomegaly present AUSCULTATION: Yes normoactive bowel sounds PALPATION: Yes Soft to palpation, No Tenderness to palpation present (GI), No Guarding due to palpation present (GI) and Yes No hepatosplenomegaly present Extremity: COMMON NORMALS: normal to inspection, capillary refill normal, no clubbing, cyanosis or edema, no calf tenderness and no pedal edema Neuro: SENSORIUM/ORIENTATION: Yes oriented to person, Yes oriented to place and Yes oriented to time Skin: COMMON NORMALS: no rashes or lesions noted GENERAL SKIN EXAM: no rashes or lesions noted Course Vital Signs: Vital signs: Vital Signs Temperature 98.2 F 08/15/22 16:50 Pulse Rate 74 08/15/22 19:43 Respiratory Rate 14 08/15/22 19:43 Blood Pressure 136/70 08/15/22 19:43 Pulse Oximetry 98 08/15/22 19:43 Oxygen Delivery Vt thod 08/15/22 16:50 MDM - Chest Pain Medical Decision Making Labs imaging and EKG reviewed. No acute findings EKG shows sinus bradycardia without ischemic changes. Suspect based on patient's history and exam's more cervical radiculopathy. Initiate steroids and anti-inflammatories follow-up with her primary care doctor if not improving may need advanced imaging. Medical Records I reviewed the patient's medical records. Lab Data I reviewed the patient's lab results. 08/15/22 17:13 08/15/22 17:13 Radiology Impressions Chest X-Ray 08/15/22 16:46 IMPRESSION: No acute findings. Laboratory Results WBC 9.4 10^3/uL (4.0-10.0) 08/15/22 17:13 RBC 4.97 10^6/uL (4.1-5.3) 08/15/22 17:13 Hgb 14.5 g/dL (11.5-15.3) 08/15/22 17:13 Hct 43.4 % (37.0-47.0) 08/15/22 17:13 MCV 87.3 fl (81-99) 08/15/22 17:13 MCH 29.2 pg (28.0-34.0) 08/15/22 17:13 MCHC 33.4 g/dL (30.0-36.0) 08/15/22 17:13 RDW 12.5 % (12.1-15.1) 08/15/22 17:13 Plt Count 306 10^3/cmm (130-400) 08/15/22 17:13 MPV 9.6 fL (7.4-10.4) 08/15/22 17:13 Neut % (Auto) 59.2 % 08/15/22 17:13 Lymph % (Auto) 31.0 % 08/15/22 17:13 [place] % (Auto) 7.4 % 08/15/22 17:13 Eos % (Auto) 1.2 % 08/15/22 17:13 Baso % (Auto) 0.7 % 08/15/22 17:13 Neut # (Auto) 5.57 10^3/uL (1.8-7.7) 08/15/22 17:13 Lymph # (Auto) 2.9 10^3/uL (0.8-4.8) 08/15/22 17:13 [place] # (Auto) 0.7 10^3/uL (0.2-0.9) 08/15/22 17:13 Eos # (Auto) 0.1 10^3/uL (0.0-0.8) 08/15/22 17:13 Baso # (Auto) 0.1 10^3/uL (0.0-0.1) 08/15/22 17:13 Nucleated RBC % (auto) 0 % 08/15/22 17:13 Nucleated RBCs # 0.0 /100WBC 08/15/22 17:13 Sodium 142 mmol/L (136-145) 08/15/22 17:13 Potassium 3.5 mmol/L (3.5-5.1) 08/15/22 17:13 Chloride 106 mmol/L (98-107) 08/15/22 17:13 Carbon Dioxide 25 mmol/L (22-29) 08/15/22 17:13 Anion Gap 14.5 (5-19) 08/15/22 17:13 BUN 9 mg/dL (6-20) 08/15/22 17:13 Creatinine 0.7 mg/dL (0.5-0.9) 08/15/22 17:13 GFR Calculation 92.2 mL/min (90-130) 08/15/22 17:13 Glucose 73 mg/dL (65-115) 08/15/22 17:13 Calculated Osmolality 291 mOsm/kg (285-295) 08/15/22 17:13 Calcium 8.8 mg/dL (8.5-10.5) 08/15/22 17:13 Total Bilirubin 0.2 mg/dL (0.15-1.2) 08/15/22 17:13 AST 13 U/L (0-32) 08/15/22 17:13 ALT 17 U/L (0-33) 08/15/22 17:13 Alkaline Phosphatase 71 U/L (35-105) 08/15/22 17:13 Troponin T Baseline 11 ng/L (0-10) H 08/15/22 17:13 Troponin T 120 Minute 9.14 ng/L (0-10) 08/15/22 19:35 Delta Troponin T -1.86 ABS# (0-10) L 08/15/22 19:35 Total Protein 6.6 g/dL (6.6-8.7) 08/15/22 17:13 Albumin 3.9 g/dL (3.5-5.2) 08/15/22 17:13 Globulin 2.7 g/dL (1.3-4.6) 08/15/22 17:13 Discharge Plan Discharge Patient Disposition: Home Clinical Impression: Cervical radiculopathy Condition: Stable Prescriptions: New prednisone 20 mg tablet 20 mg PO TID Qty: 15 0RF Rx Instructions: 1 p.o. 3 times daily x3 days, 1 p.o. twice daily x2 days, 1 p.o. daily x2 days diclofenac sodium 75 mg tablet,delayed release (DR/EC) 75 mg PO Q12H PRN (Reason: pain) Qty: 20 0RF tizanidine 4 mg tablet 4 mg PO Q6H PRN (Reason: muscle spasticity) Qty: 20 0RF Rx Instructions: do not exceed 3 doses per 24 hrs No Action Advil 200 mg Tablet 200 mg PO Q6H PRN (Reason: Pain) Discharge Orders: Discharge ED (Routine); Ordered 08/15/22 Ordered By: Alejandro Fontenot Referrals: Angeli Dey NP [Primary Care Provider] - Patient Instructions: Opioid Safety, Pain Management Activity Restrictions/Additional Instructions: Start steroid taper tomorrow. Use diclofenac and tizanidine as needed follow-up with your primary care doctor if not improving. Coding Level of Care Code ED Acupuncture Physician for Guillermo Fwd Exam Comprehensive
[2022-08-15 17:18] LABS: Basophils # 0.1 10^3/uL (0.0-0.1); Basophils % 0.7 %; Eosinophils # 0.1 10^3/uL (0.0-0.8); Eosinophils % 1.2 %; Hematocrit 43.4 % (37.0-47.0); Hemoglobin 14.5 g/dL (11.5-15.3); Lymphocytes # 2.9 10^3/uL (0.8-4.8); Mean Corpuscular HGB Conc 33.4 g/dL (30.0-36.0); Mean Corpuscular Hemoglobin 29.2 pg (28.0-34.0); Mean Corpuscular Volume 87.3 fl (81-99); Mean Platelet Volume 9.6 fL (7.4-10.4); Monocytes # 0.7 10^3/uL (0.2-0.9); Monocytes % 7.4 %; Neutrophils # 5.57 10^3/uL (1.8-7.7); Neutrophils % 59.2 %; Nucleated Red Blood Cells % 0 %; Platelet Count 306 10^3/cmm (130-400); Red Blood Count 4.97 10^6/uL (4.1-5.3); Red Cell Distribution Width 12.5 % (12.1-15.1); White Blood Count 9.4 10^3/uL (4.0-10.0)
[2022-08-15 17:44] LABS: Troponin(5th) Baseline 11 ng/L (0-10)
[2022-08-15 17:45] LABS: Alanine Aminotransferase 17 U/L (0-33); Albumin Level 3.9 g/dL (3.5-5.2); Alkaline Phosphatase 71 U/L (35-105); Anion Gap 14.5 (5-19); Aspartate Amino Transferase 13 U/L (0-32); Blood Urea Nitrogen 9 mg/dL (6-20); Calcium 8.8 mg/dL (8.5-10.5); Carbon Dioxide 25 mmol/L (22-29); Chloride 106 mmol/L (98-107); Globulin 2.7 g/dL (1.3-4.6); Glomerular Filtration Rate 92.2 mL/min (90-130); Glucose 73 mg/dL (65-115); Osmolality Calculated 291 mOsm/kg (285-295); Potassium 3.5 mmol/L (3.5-5.1); Sodium 142 mmol/L (136-145); Total Bilirubin 0.2 mg/dL (0.15-1.2); Total Protein 6.6 g/dL (6.6-8.7)
[2022-08-15] MEDS: ketorolac 30 mg/mL INJ IVP (18:22)
[2022-08-15] MEDS: orphenadrine 30 mg/mL Inj 2 mL 60 MG IVP (18:23)
[2022-08-15] MEDS: dexamethasone 10 mg/mL INJ IVP (18:23)
--- NOTE | 2022-08-15 18:43 | ECG_ITS ---
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 Measurements Intervals [place] Rate: 59 P: 53 MN: 145 QRS: 57 QRSD: 86 T: 41 QT: 420 QTc: 417 Interpretive Statements SINUS BRADYCARDIA Compared to ECG 08/15/2022 17:10:52 Sinus rhythm no longer present Electronically Signed On 08-16-2022 11:40:26 STRIPPING SHOVEL OILER by Kandy Clark M.D. [email or web address] Capitalselect medical specialty [id number]
[2022-08-15 19:43] VITALS: BP 136/70; PULSE 74; RESP 14; O2SAT 98
[2022-08-15 20:11] LABS: Troponin 5 2HR 9.14 ng/L (0-10)
[2022-08-15 21:13] LABS: Troponin 5 2HR Delta -1.86 ABS# (0-10)
== END 2022-08-15 19:45 | disposition home or self-care (01) ==
PROVIDERS: Emergency Provider Family Medicine; PCP Nurse Practitioner Family
DX: M54.12 Radiculopathy, cervical region (principal); F17.210 Nicotine dependence, cigarettes, uncomplicated
CPT/HCPCS: 71045; 80053; 84484; 85025; 93005; 96374; 96375; 99285; J1100; J1885; J2360

== ENCOUNTER → 2022-10-16 08:45 | Outpatient (BNVA) | payer MEDICAID, SELFPAY | PROVIDERS: PCP Nurse Practitioner Family; Visit Provider Nurse Practitioner Family | DX: M25.512 Pain in left shoulder (principal) | CPT/HCPCS: 73030 ==

== ENCOUNTER 2023-02-12 09:19 | Outpatient (CLI) | payer MEDICAID, SELFPAY ==
--- NOTE | 2023-02-12 09:30 | MR_ITS ---
WS: [id number] MRI LEFT SHOULDER HISTORY: M25.512 - Pain in left shoulder COMPARISON: Radiograph 10/16/2022 TECHNIQUE: Multiplanar sequences of the shoulder joint are submitted. Moderate narrowing of the AC joint with osteophyte formation. 5.5 mm osteophyte from the acromion enc roaches upon the supraspinatus tendon and muscle. Additional osteophytic changes involving the distal clavicle. Mild thickening of the joint capsule. There is edema in the distal clavicle and AC joint. No fracture. Marked subacromial impingement. Acromiohumeral space measures 4 mm. There is a very tiny amount of fluid in the subacromial and subdeltoid bursa. No os acromion. Biceps tendon normal positi on in the bicipital groove. There is a very small amount of increased T2 signal in the distal subscapularis tendon. Increased sig nal extends to the insertion site. No full-thickness tear or retraction. No muscle atrophy or retract ion. There is a very small amount of increased T2 signal in the distal bursal surface of the supraspi natus tendon. This is associated with subacromial impingement. No labral tear is identified. MR/MR shoulder LT wo con* [id number] IMPRESSION: 1. Moderate AC joint arthritis. Osteophyte encroaching upon the supraspinatus tendon and muscle. Marked narrowing of the AC joint and osteophytic ridging. 2. Moderate subacromial impingement. Marked narrowing of the acromiohumeral sp shad by subacromial impingement. There is a very small amount of associated incr eased T2 signal along the bursal surface of the supraspinatus tendon. No full-t hickness tear. This may represent a very tiny tear or tendinopathy. 3. Increased T2 signal in the distal subscapularis tendon. This can be seen wi th distal tendon tear with interstitial extension or tendinopathy. Favor insert ion site tear with interstitial extension.
== END 2023-02-12 09:20 | disposition home or self-care (01) ==
LOC: RAD 09:23
PROVIDERS: PCP Nurse Practitioner Family; Visit Provider Nurse Practitioner Family
DX: M25.512 Pain in left shoulder (principal); M19.012 Primary osteoarthritis, left shoulder
CPT/HCPCS: 73221

== ENCOUNTER → 2023-04-26 09:18 | Outpatient (BNVA) | payer MEDICAID, SELFPAY | PROVIDERS: PCP Nurse Practitioner Family; Visit Provider Nurse Practitioner Family | DX: R10.9 Unspecified abdominal pain (principal); K21.9 Gastro-esophageal reflux disease without esophagitis | CPT/HCPCS: 80053; 80061 ==

== ENCOUNTER 2023-04-26 16:51 | Emergency (ER) | payer MEDICAID, SELFPAY ==
[2023-04-26 17:30] VITALS: BP 149/93; PULSE 67; RESP 16; TEMP 36.7; O2SAT 98; BMI 31.8
--- NOTE | 2023-04-26 19:10 | ED_ITS ---
HPI - Abdominal Pain General: Chief Complaint: Abdominal Pain Stated Complaint: abd pain moving up her torso over 4-5 days Time Seen by Provider: 04/26/23 19:06 Source: patient Mode of arrival: ambulatory History of Present Illness: 42-year-old female presents emergency room complaining of abdominal discomfort that she has had for the last 4 to 5 days. Initially began more in the right lower quadrant. She previously had a bladder sling, around 18 years ago. Today she had a single episode of incontinence. She denies any back pain. No dysuria urgency or frequency no fevers sweats or chills. Other previous surgeries inc lude section cholecystectomy hysterectomy. MD elicited complaint: abdominal pain Pertinent past history: none Onset (ago): hour(s) Pain Consistency: constant Location: None Severity: moderate Quality: cramping Radiation: none Exacerbating factors: nothing Relieving factors: nothing Associated Symptoms: Reports nausea; Denies anorexia, belching, bloating, change in bowel habits, change in stool character, chills, coffee ground emesis, constipation, GI cramping, diarrhea, dyspepsia, dysuria, excessive flatus, fever(s), heartburn, hematochezia, hematuria, hematemesis, fecal incontinence, loose stools, melena, poor appetite, syncope and vomiting Review of Systems Const: Denies: fever(s) or chills Card: Denies: chest pain, palpitations, irregular heart rhythm or syncope Resp: Denies: dyspnea, productive cough or non-productive cough GI: Reports: abdominal pain and nausea; Denies: vomiting, hematemesis, coffee ground emesis, heartburn, diarrhea, constipation, bloating, GI cramping, belching, excessive flatus, fecal incontinence, change in bowel habits, change in stool character, hematochezia or melena : Reports: urinary incontinence; Denies: dysuria, urinary frequency, urinary urgency or hematuria Skin/Breast: Denies: rash or pruritus PFSH ED PFSH: Medical History Acute right-sided weakness Cigarette smoker Headache Spondylolisthesis, acquired Surgical History Hx of section Hx of cholecystectomy Hx of hysterectomy, total Family History Father Diabetes Social History Quit status (tobacco): has quit using tobacco Year quit tobacco: quit 01/05/2021 Second hand smoke exposure: No Smoking risk assessment/counseling performed?: Yes Alcohol intake: never Desire information about alcohol rehabilitation?: No Counseling given: No Substance/Drug Use: unknown Desire information about substance/drug rehabilitation?: No Counseling given: No Adopted: No Caregiver/support person: No Lives independently: Yes Household members: spouse and children Housing: House Marital status: Number of children: 6 service: No Current occupational status: employed 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[employer] Pets and animals: Yes Do you think of yourself as: Straight/Heterosexual Current gender identity: Female Physical Exam Const: GENERAL APPEARANCE: cooperative and comfortable ORIENTATION/CONSCIOUSNESS: Yes awake, Yes oriented to person, Yes oriented to place and Yes oriented to time HENMT: COMMON NORMALS: normocephalic, atraumatic and hearing grossly normal bilaterally HEAD & SCALP: normocephalic and atraumatic Resp: COMMON NORMALS: normal respiratory effort, No retractions, No use of accessory muscles and clear to auscultation bilaterally AUSCULTATION: clear to auscultation bilaterally Cardio: COMMON NORMALS: regular rate, regular rhythm and No murmurs present (Cardio) RATE: regular rate RHYTHM: regular rhythm GI: COMMON NORMALS: Soft to palpation and No hepatosplenomegaly present AUSCULTATION: Yes normoactive bowel sounds PALPATION: Yes Soft to palpation, No Tenderness to palpation present (GI), No Guarding due to palpation present (GI) and Yes No hepatosplenomegaly present Extremity: COMMON NORMALS: normal to inspection, capillary refill normal, no clubbing, cyanosis or edema, no calf tenderness and no pedal edema Neuro: SENSORIUM/ORIENTATION: Yes oriented to person, Yes oriented to place and Yes oriented to time Skin: COMMON NORMALS: no rashes or lesions noted GENERAL SKIN EXAM: no rashes or lesions noted Course Vital Signs: Vital signs: Vital Signs Temperature 98.1 F 04/26/23 17:30 Pulse Rate 54 L 04/26/23 19:38 Respiratory Rate 16 04/26/23 19:38 Blood Pressure 140/95 04/26/23 19:38 Pulse Oximetry 97 04/26/23 19:38 Oxygen Delivery Me thod Room Air 04/26/23 19:38 MDM - Abdominal Pain Medical Decision Making CT abdomen and labs are unremarkable. Suspect this is GI related probably reflux or dyspepsia. Increase pantoprazole to twice daily for 14 days and then to daily afterwards. Follow-up with primary care return if has further problems. Dietary restrictions given. Medical Records I reviewed the patient's medical records. Lab Data I reviewed the patient's lab results. 04/26/23 19:25 04/26/23 19:25 Labs/Radiology: Radiology Impressions Abdomen/Pelvis CT 04/26/23 19:[address]: [address] evidence of acute intra-abdominal or pelvic pathology. 2. Additional findings, as above. Laboratory Results WBC 9.6 10^3/uL (4.0-10.0) 04/26/23 19:25 RBC 5.14 10^6/uL (4.1-5.3) 04/26/23 19:25 Hgb 14.6 g/dL (11.5-15.3) 04/26/23 19:25 Hct 45.0 % (37.0-47.0) 04/26/23 19:25 MCV 87.5 fl (81-99) 04/26/23 19:25 MCH 28.4 pg (28.0-34.0) 04/26/23 19:25 MCHC 32.4 g/dL (30.0-36.0) 04/26/23 19:25 RDW 12.9 % (12.1-15.1) 04/26/23 19:25 Plt Count 346 10^3/cmm (130-400) 04/26/23 19:25 MPV 9.6 fL (7.4-10.4) 04/26/23 19:25 Neut % (Auto) 61.7 % 04/26/23 19:25 Lymph % (Auto) 29.8 % 04/26/23 19:25 [place] % (Auto) 6.0 % 04/26/23 19:25 Eos % (Auto) 1.3 % 04/26/23 19:25 Baso % (Auto) 0.9 % 04/26/23 19:25 Neut # (Auto) 5.89 10^3/uL (1.8-7.7) 04/26/23 19:25 Lymph # (Auto) 2.9 10^3/uL (0.8-4.8) 04/26/23 19:25 [place] # (Auto) 0.6 10^3/uL (0.2-0.9) 04/26/23 19:25 Eos # (Auto) 0.1 10^3/uL (0.0-0.8) 04/26/23 19:25 Baso # (Auto) 0.1 10^3/uL (0.0-0.1) 04/26/23 19:25 Nucleated RBC % (auto) 0 % 04/26/23 19:25 Nucleated RBCs # 0.0 /100WBC 04/26/23 19:25 Sodium 139 mmol/L (136-145) 04/26/23 19:25 Potassium 3.7 mmol/L (3.5-5.1) 04/26/23 19:25 Chloride 103 mmol/L (98-107) 04/26/23 19:25 Carbon Dioxide 26 mmol/L (22-29) 04/26/23 19:25 Anion Gap 13.7 (5-19) 04/26/23 19:25 BUN 13 mg/dL (6-20) 04/26/23 19:25 Creatinine 0.8 mg/dL (0.5-0.9) 04/26/23 19:25 GFR Calculation 78.7 mL/min (90-130) L 04/26/23 19:25 Glucose 89 mg/dL (65-115) 04/26/23 19:25 Calculated Osmolality 288 mOsm/kg (285-295) 04/26/23 19:25 Calcium 8.9 mg/dL (8.5-10.5) 04/26/23 19:25 Total Bilirubin 0.2 mg/dL (0.15-1.2) 04/26/23 19:25 AST 17 U/L (0-32) 04/26/23 19:25 ALT 27 U/L (0-33) 04/26/23 19:25 Alkaline Phosphatase 71 U/L (35-105) 04/26/23 19:25 Total Protein 7.2 g/dL (6.6-8.7) 04/26/23 19:25 Albumin 4.2 g/dL (3.5-5.2) 04/26/23 19:25 Globulin 3.0 g/dL (1.3-4.6) 04/26/23 19:25 Urine Color Colorless (Yellow) 04/26/23 19:24 Urine Appearance Clear (CLEAR) 04/26/23 19:24 Urine pH 7 (5-7) 04/26/23 19:24 Ur Specific [place] 1.005 (1.005-1.030) 04/26/23 19:24 Urine Protein Neg (Negative) 04/26/23 19:24 Urine Glucose (UA) Norm (Normal) 04/26/23 19:24 Urine Ketones Negative (Negative) 04/26/23 19:24 Urine Blood Neg (Negative) 04/26/23 19:24 Urine Nitrate Negative (Negative) 04/26/23 19:24 Urine Bilirubin Neg (Negative) 04/26/23 19:24 Urine Urobilinogen Norm mg/dL (Negative) 04/26/23 19:24 Ur Leukocyte Esterase Negative (Negative) 04/26/23 19:24 Discharge Plan Discharge Patient Disposition: Home Clinical Impression: GERD (gastroesophageal reflux disease), Epigastric abdominal pain Condition: Stable Prescriptions: New pantoprazole 40 mg tablet,delayed release (DR/EC) 40 mg PO BID 14 Days Qty: 28 0RF No Action pantoprazole [Protonix] 40 mg tablet,delayed release (DR/EC) 40 mg PO DAILY 90 Days Qty: 90 0RF Discharge Orders: Discharge ED (Routine); Ordered 04/26/23 Ordered By: Alejandro Fontenot Referrals: Angeli Dey NP [Primary Care Provider] - Patient Instructions: Diet for Stomach Ulcers and Gastritis (ED), Opioid Safety, Pain Management Activity Restrictions/Additional Instructions: You were seen today for abdominal pain CT of your abdomen was normal your laboratory tests were unremarkable. Would recommend you increase your pantopr azole to 1 pill twice daily for the next 14 days then decrease back to once daily. You were given dietary recommendations with your discharge instructions follow-up with your primary care doctor. Coding Level of Care Code ED Detective Bureau Chief for Guillermo Dalton
[2023-04-26] MEDS: sodium chloride 0.9% 1,000 ML 999 ML IV (19:34)
--- NOTE | 2023-04-26 19:35 | CTR_ITS ---
PROCEDURE INFORMATION: Exam: CT Abdomen And Pelvis With Contrast Exam date and time: 04/26/2023 7:42 PM Age: 42 years old Clinical indication: Abdominal pain; Generalized; Prior surgery; Surgery date: 6+ months; Surgery type: Gb. Hysterectomy. Csection; Patient HX: C/O diffuse abd pain TECHNIQUE: Imaging protocol: Computed tomography of the abdomen and pelvis with contrast. Axial, coronal and sagittal reformatted images were created and reviewed. Radiation optimization: All CT scans at this facility use at least one of these dose optimization techniques: automated exposure control; mA and/or kV adjustment per patient size (includes targeted exams where dose is matched to clinical indication); or iterative reconstruction. Contrast material: OMNI 350; Contrast volume: 100 ml; Contrast route: INTRAVENOUS (IV); REPORTING DATA: Count of CT and Cardiac NM exams in prior 12 months: This patient has received 0 known CTs and 0 known cardiac nuclear medicine studies in the 12 months prior to the current study. COMPARISON: CT abdomen pelvis wo con [id number] 06/26/2018 1:54 PM RADIATION DOSE METRICS: Total DLP (mGy-cm): 664.73 FINDINGS: Lungs: Left lower lobe calcified granuloma. Diaphragm: Small hiatal hernia. Liver: Mild hepatomegaly. Gallbladder and bile ducts: Status post cholecystectomy. No biliary ductal dilatation. Pancreas: Unremarkable. Spleen: Unremarkable. Adrenal glands: Normal. No mass. Kidneys and ureters: No mass. No radiodense calculi. No hydronephrosis. Stomach and bowel: No bowel wall thickening. No obstruction. No pneumatosis. Appendix: Normal. Intraperitoneal space: Trace nonspecific free pelvic fluid, likely physiologic. No organized fluid collection. No free air. Vasculature: Minimal atherosclerotic disease. No aneurysm or dissection. Lymph nodes: No pathologically enlarged lymph nodes. Urinary bladder: Mild circumferential urinary bladder wall thickening, likely secondary to underdistention. Reproductive: Probable involuting right ovarian corpus luteal cyst. Status post hysterectomy. Bones/joints: No acute osseous abnormality. Soft tissues: Tiny, fat containing umbilical hernia. CT/CT abdomen pelvis w con* [id number]: 1[address] No CT evidence of acute intra-abdominal or pelvic pathology. 2. Additional findings, as above.
[2023-04-26 19:38] VITALS: BP 140/95; PULSE 54; RESP 16; O2SAT 97
[2023-04-26 19:39] LABS: Basophils # 0.1 10^3/uL (0.0-0.1); Basophils % 0.9 %; Eosinophils # 0.1 10^3/uL (0.0-0.8); Eosinophils % 1.3 %; Hemoglobin 14.6 g/dL (11.5-15.3); Lymphocytes # 2.9 10^3/uL (0.8-4.8); Lymphocytes % 29.8 %; Mean Corpuscular HGB Conc 32.4 g/dL (30.0-36.0); Mean Corpuscular Hemoglobin 28.4 pg (28.0-34.0); Mean Corpuscular Volume 87.5 fl (81-99); Mean Platelet Volume 9.6 fL (7.4-10.4); Monocytes # 0.6 10^3/uL (0.2-0.9); Neutrophils # 5.89 10^3/uL (1.8-7.7); Neutrophils % 61.7 %; Nucleated Red Blood Cells % 0 %; Platelet Count 346 10^3/cmm (130-400); Red Blood Count 5.14 10^6/uL (4.1-5.3); Red Cell Distribution Width 12.9 % (12.1-15.1); White Blood Count 9.6 10^3/uL (4.0-10.0)
[2023-04-26] MEDS: iohexol 350 mg/mL 500 mL Btl (per mL) IV (19:41)
[2023-04-26 19:43] LABS: Add Urine Microscopic? NO; Charge for UA Resulting for Rev
[2023-04-26 19:45] LABS: Bilirubin Urine Neg (Negative); Blood Urine Neg (Negative); Glucose Urine UA Norm (Normal); Ketones Urine Negative (Negative); Leukocyte Esterase Urine Negative (Negative); Nitrate Urine Negative (Negative); Protein Urine Neg (Negative); Specific Gravity, Urine 1.005 (1.005-1.030); Urine Appearance Clear (CLEAR); Urine Color Colorless (Yellow); Urobilinogen Urine Norm (Negative); pH Urine 7 (5-7)
[2023-04-26] MEDS: aluminum-mag hydrox-simethicon 30 ML, sucralfate oral liq 1 GM PO (20:03)
[2023-04-26 20:14] LABS: Alanine Aminotransferase 27 U/L (0-33); Albumin Level 4.2 g/dL (3.5-5.2); Alkaline Phosphatase 71 U/L (35-105); Anion Gap 13.7 (5-19); Aspartate Amino Transferase 17 U/L (0-32); Blood Urea Nitrogen 13 mg/dL (6-20); Calcium 8.9 mg/dL (8.5-10.5); Carbon Dioxide 26 mmol/L (22-29); Chloride 103 mmol/L (98-107); Glomerular Filtration Rate 78.7 mL/min (90-130); Glucose 89 mg/dL (65-115); Osmolality Calculated 288 mOsm/kg (285-295); Potassium 3.7 mmol/L (3.5-5.1); Sodium 139 mmol/L (136-145); Total Bilirubin 0.2 mg/dL (0.15-1.2); Total Protein 7.2 g/dL (6.6-8.7)
== END 2023-04-26 21:13 | disposition home or self-care (01) ==
PROVIDERS: Emergency Provider Family Medicine; PCP Nurse Practitioner Family
DX: K21.9 Gastro-esophageal reflux disease without esophagitis (principal); Z87.891 Personal history of nicotine dependence
CPT/HCPCS: 74177; 80053; 81003; 85025; 96360; 96361; 99285; J7030; Q9967

== ENCOUNTER 2023-05-03 05:59 | Outpatient (CLI) | payer MEDICAID, SELFPAY ==
--- NOTE | 2023-05-03 06:15 | US_ITS ---
WS: [id number] ABDOMINAL ULTRASOUND LIMITED REASON FOR EXAM: HEPATOMEGALY COMPARISON: None available. ORDER DATE: 05/03/2023 6:05 AM TECHNIQUE: Grayscale and Doppler ultrasound examination of the abdomen. FINDINGS: Pancreas: Unremarkable Abdominal aorta and IVC: 1.7 cm in diameter, 1.9 cm in diameter respectively Liver: Liver measures 19.5 cm in length. Normal echotexture Gallbladder: Resected common bile duct 4 mm diameter Right kidney: Right kidney measures 10.8 cm x 4.8 cm x 5.1 cm. Right kidney cortex measures 0.7 cm. N o focal abnormality Right renal cortex 7 mm US/US liver [id number] IMPRESSION: Mild hepatomegaly. No focal abnormality.
--- NOTE | 2023-05-03 09:15 | US_ITS ---
WS: [id number] EXAMINATION: US bladder [id number] REASON FOR EXAM: INCONTINENCE OF URINE COMPARISON: None available. ORDER DATE: 05/03/2023 6:53 AM TECHNIQUE: 2-D and Doppler imaging of the ureter and bladder is obtained. FINDINGS/IMPRESSION: The prevoid volume of the urinary bladder was 151 mL with bladder measurements of 59 x 86 x 57 mm in outline. On the post void study measurements are 20 x 45 x 26 mm in outline with a postvoid volume 12 mL. Bladder mucosa was unremarkable. There were bilateral ureteral jets noted.
== END 2023-05-03 06:00 | disposition home or self-care (01) ==
LOC: RAD 06:00
PROVIDERS: PCP Nurse Practitioner Family; Visit Provider Nurse Practitioner Family
DX: R32 Unspecified urinary incontinence (principal); R16.0 Hepatomegaly, not elsewhere classified
CPT/HCPCS: 76705; 76857

== ENCOUNTER 2024-02-10 08:57 | Emergency (ER) | payer MEDICAID, SELFPAY ==
--- NOTE | 2024-02-10 08:58 | ECG_ITS ---
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 Measurements Intervals [place] Rate: 64 P: 10 HI: 135 QRS: 51 QRSD: 87 T: 15 QT: 391 QTc: 406 Interpretive Statements SINUS RHYTHM Compared to ECG 08/15/2022 18:43:11 Sinus bradycardia no longer present Electronically Signed On 02-10-2024 10:54:11 CDT by Ajay Huizar M.D. [id number]
--- NOTE | 2024-02-10 08:58 | XRR_ITS ---
PROCEDURE INFORMATION: Exam: XR Chest Exam date and time: 02/10/2024 9:20 AM Age: 43 years old Clinical indication: Pain; Angina pectoris; Additional info: Chest pain TECHNIQUE: Imaging protocol: Radiologic exam of the chest. Views: 1 view. COMPARISON: CR XR chest 1V portable [id number] 08/15/2022 5:50 PM FINDINGS: Lungs: The lung parenchyma is clear. Pleural spaces: No pneumothorax. No large pleural effusion. Heart/Mediastinum: The cardiomediastinal silhouette is within normal limits. Bones/joints: Unremarkable. XR/XR chest 1V portable [id number] IMPRESSION: No acute cardiopulmonary abnormality.
--- NOTE | 2024-02-10 09:02 | ED_ITS ---
HPI - Chest Pain 2 General: Chief Complaint: Chest Pain Stated Complaint: chest pain Time Seen by Provider: 02/10/24 08:58 Source: patient Mode of arrival: ambulatory Limitations: no limitations History of Present Illness: Patient is a 43-year-old female with no known past medical history here for complaints of intermittent chest pain. Patient states she first noticed chest pain approximately 3 days ago when it woke her up from sleep in the middle of the night. She describes a heaviness substernally lasting for approximately 2 to 3 minutes. She states following this she was able to fall back to sleep. She states since then she has had intermittent episodes of similar discomforts throughout the weekend. She states she has felt worn down all weekend. Denies any fevers or URI-like symptoms. Chest pain is not affected by eating. She does feel like there is some exertional component. She states she woke up early this morning with chest discomfort accompanied by diaphoresis and some mild dizziness. Upon arrival she states the symptoms have pretty well subsided. She has felt slightly dyspneic during episodes of pain. In between brief episodes she is fairly asymptomatic. Denies any known cardiac or pulmonary history. MD complaint: chest pain Onset (ago): day(s) Timing of current episode: episodic Prior episodes: No Onset: during rest Pain location: substernal Pain radiation: none Severity: moderate Quality: heaviness Relieving factors: nothing Exacerbating factors: exertion Associated symptoms: Reports dyspnea (states she feels short of breath during episodes of chest pain); Deny abdominal pain, fever(s), nausea, palpitations, syncope or vomiting Treatment prior to arrival: none Risk Factors: Coronary artery disease risk factors: none Thoracic aortic dissection risk factors: none Review of Systems 2 Const: Reports: fatigue (states she has felt worn down all weekend); Denies: fever(s), chills, body aches or malaise Eyes: Denies: change in vision or blurry vision Card: Reports: chest pain; Denies: palpitations, irregular heart rhythm, edema, swelling of feet/ankles, lightheadedness, syncope, pre-syncope, dyspnea on exertion, orthopnea, leg pain with exertion or acrocyanosis Resp: Reports: dyspnea (states she feels short of breath during episodes of chest pain); Denies: productive cough, non-productive cough, wheezing, stridor, pain on inspiration, change in phlegm color, hemoptysis or chest congestion GI: Denies: abdominal pain, nausea, vomiting, heartburn or diarrhea : Denies: flank pain or dysuria Musc: Denies: neck pain, back pain, extremity pain, extremity swelling or joint pain Skin/Breast: Denies: rash Neuro: Denies: headache(s), numbness in extremities, weakness in extremities, sensory changes, lack of coordination or difficulty walking PFSH ED 2 PFSH: Medical History Cigarette smoker Spondylolisthesis, acquired Headache Acute right-sided weakness Surgical History Hx of hysterectomy, total Hx of cholecystectomy Hx of section Family History Father Diabetes Social History Quit status (tobacco/nicotine): has quit using Year quit tobacco: quit 01/05/2021 Second hand smoke exposure: No Alcohol intake: never Substance/Drug Use: unknown Adopted: No Caregiver/support person: No Lives independently: Yes Household members: spouse and children Housing: House Marital status: Number of children: 6 service: No Current occupational status: employed Current occupation: [email or web address] Pets and animals: Yes Do you think of yourself as: Straight/Heterosexual Current gender identity: Female Physical Exam 2 Const: COMMON NORMALS: no acute distress, patient oriented x3, no limitations, healthy appearing, alert and well nourished GENERAL APPEARANCE: cooperative ORIENTATION/CONSCIOUSNESS: Yes awake, Yes oriented to person, Yes oriented to place and Yes oriented to time HENMT: COMMON NORMALS: normocephalic and atraumatic HEAD & SCALP: normal to inspection, normocephalic and atraumatic Neck/C-Spine: COMMON NORMALS: full ROM, no lymphadenopathy, supple, no meningeal signs and no JVD Chest: COMMONS NORMALS: normal inspection of the chest OTHER: mild tenderness to palpation of anterior chest wall Resp: COMMON NORMALS: normal respiratory effort and clear to auscultation bilaterally AUSCULTATION: clear to auscultation bilaterally Cardio: COMMON NORMALS: no JVD, regular rate and regular rhythm RATE: r egular rate RHYTHM: regular rhythm GI: COMMON NORMALS: Normal to inspection, nondistended, normoactive bowel sounds present, Soft to palpation, non-tender, No hepatosplenomegaly present and no masses PALPATION: Yes Soft to palpation and Yes No hepatosplenomegaly present : COMMON NORMALS: Yes no CVA tenderness BLADDER/KIDNEY EXAM: Yes no CVA tenderness Back/Pelvis: COMMON NORMALS: no CVA tenderness and thoracic and lumbar spine normal to inspection Extremity: COMMON NORMALS: normal to inspection, capillary refill normal, no clubbing, cyanosis or edema, no calf tenderness and no pedal edema GENERAL: Y es normal exam except as noted Neuro: ADIA COMA SCALE: document GCS findings [place] coma scale eye opening: Spontaneous Adia coma scale verbal response: Orientated Adia coma scale motor response: Obey commands Adia coma scale total score: 15 COMMON NORMALS: patient oriented x3, moves all extremities, no focal motor deficits and no sensory deficits noted SENSORIUM/ORIENTATION: Yes alert, Yes oriented to person, Yes oriented to place and Yes oriented to time MENINGEAL SIGNS: Yes no meningeal signs Skin: COMMON NORMALS: no rashes or lesions noted GENERAL SKIN EXAM: no rashes or lesions noted Course 2 Vital Signs: Vital signs: Vital Signs Temperature 97.8 F 02/10/24 09:03 Pulse Rate 54 L 02/10/24 10:19 Respiratory Rate 16 02/10/24 09:10 Blood Pressure 129/71 02/10/24 10:19 Pulse Oximetry 98 02/10/24 10:19 Oxygen Delivery Me thod Room Air 02/10/24 09:03 MDM - Chest Pain Medical Decision Making Patient is a 43-year-old female here with intermittent chest pains over the weekend. She presented with stable vital signs apart from an elevated blood pressure reading. This did normalize without intervention. CXR is unremarkable. Baseline troponin is normal. Baseline EKG overall looks okay apart from some possible T wave inversion in lead III. Plan was to stay for a 2-hour troponin which patient was initially agreeable to. Unfortunately 2-hour troponin was delayed and patient became frustrated and states she would like to leave. Explained to her the importance of trending troponins but patient would still like to leave. She will sign AMA. Return precautions discussed. Otherwise I would like her to follow-up with her primary care provider soon as possible. Medical Records I reviewed the patient's medical records. Lab Data I reviewed the patient's lab results. 02/10/24 09:12 02/10/24 09:12 Radiology Impressions Chest X-Ray 02/10/24 08:58 IMPRESSION: No acute cardiopulmonary abnormality. Laboratory Results WBC 7.23 10^3/uL (3.29-11.43) 02/10/24 09:12 RBC 4.96 10^6/uL (3.85-5.65) 02/10/24 09:12 Hgb 14.00 g/dL (11.27-16.99) 02/10/24 09:12 Hct 43.2 % (36-47) 02/10/24 09:12 MCV 87.1 fl (85-98) 02/10/24 09:12 MCH 28.2 pg (27-33) 02/10/24 09:12 MCHC 32.4 g/dL (30-55) 02/10/24 09:12 RDW 13.0 % (12.1-15.1) 02/10/24 09:12 Plt Count 334 10^3/cmm (157-399) 02/10/24 09:12 MPV 9.5 fL (7.4-10.4) 02/10/24 09:12 Neut % (Auto) 64.6 % 02/10/24 09:12 Lymph % (Auto) 27.1 % 02/10/24 09:12 [place] % (Auto) 5.9 % 02/10/24 09:12 Eos % (Auto) 1.1 % 02/10/24 09:12 Baso % (Auto) 1.0 % 02/10/24 09:12 Neut # (Auto) 4.67 10^3/uL (1.8-7.7) 02/10/24 09:12 Lymph # (Auto) 2.0 10^3/uL (0.8-4.8) 02/10/24 09:12 Frederick # (Auto) 0.4 10^3/uL (0.2-0.9) 02/10/24 09:12 Eos # (Auto) 0.1 10^3/uL (0.0-0.8) 02/10/24 09:12 Baso # (Auto) 0.1 10^3/uL (0.0-0.1) 02/10/24 09:12 Nucleated RBC % (auto) 0 % 02/10/24 09:12 Nucleated RBCs # 0.0 /100WBC 02/10/24 09:12 Sodium 139 mmol/L (136-145) 02/10/24 09:12 Potassium 3.9 mmol/L (3.5-5.1) 02/10/24 09:12 Chloride 104 mmol/L (98-107) 02/10/24 09:12 Carbon Dioxide 25 mmol/L (22-29) 02/10/24 09:12 Anion Gap 13.9 (5-19) 02/10/24 09:12 BUN 8 mg/dL (6-20) 02/10/24 09:12 Creatinine 0.8 mg/dL (0.5-0.9) 02/10/24 09:12 GFR Calculation 78.3 mL/min (90-130) L 02/10/24 09:12 Glucose 108 mg/dL (65-115) 02/10/24 09:12 Calculated Osmolality 287 mOsm/kg (285-295) 02/10/24 09:12 Calcium 8.9 mg/dL (8.5-10.5) 02/10/24 09:12 Total Bilirubin 0.2 mg/dL (0.15-1.2) 02/10/24 09:12 AST 13 U/L (0-32) 02/10/24 09:12 ALT 19 U/L (0-33) 02/10/24 09:12 Alkaline Phosphatase 74 U/L (35-105) 02/10/24 09:12 Troponin T Baseline 9 ng/L (0-10) 02/10/24 09:12 Total Protein 6.6 g/dL (6.6-8.7) 02/10/24 09:12 Albumin 3.8 g/dL (3.5-5.2) 02/10/24 09:12 Globulin 2.8 g/dL (1.3-4.6) 02/10/24 09:12 All radiology interpretation(s) finalized by discharge Discharge Plan Discharge Patient Disposition: Left Against Medical Advice Clinical Impression: Chest pain Condition: Stable Prescriptions: No Action Aspir-81 81 mg Tablet,Delayed Release (Dr/Ec) 81 mg PO DAILY PRN (Reason: Chest Pain) Referrals: Angeli Dey NP [Primary Care Provider] - Coding Level of Care Code ED Cotton Expert for Guillermo Dalton
[2024-02-10 09:03] VITALS: BP 171/91; PULSE 79; RESP 18; TEMP 36.6; O2SAT 99; BMI 33.3
[2024-02-10 09:10] VITALS: PULSE 63; RESP 16; O2SAT 100
[2024-02-10 09:19] LABS: Basophils # 0.1 10^3/uL (0.0-0.1); Eosinophils # 0.1 10^3/uL (0.0-0.8); Eosinophils % 1.1 %; Hematocrit 43.2 % (36-47); Lymphocytes % 27.1 %; Mean Corpuscular HGB Conc 32.4 g/dL (30-55); Mean Corpuscular Hemoglobin 28.2 pg (27-33); Mean Corpuscular Volume 87.1 fl (85-98); Mean Platelet Volume 9.5 fL (7.4-10.4); Monocytes # 0.4 10^3/uL (0.2-0.9); Monocytes % 5.9 %; Neutrophils # 4.67 10^3/uL (1.8-7.7); Neutrophils % 64.6 %; Nucleated Red Blood Cells % 0 %; Platelet Count 334 10^3/cmm (157-399); Red Blood Count 4.96 10^6/uL (3.85-5.65); White Blood Count 7.23 10^3/uL (3.29-11.43)
[2024-02-10 09:45] LABS: Alanine Aminotransferase 19 U/L (0-33); Albumin Level 3.8 g/dL (3.5-5.2); Alkaline Phosphatase 74 U/L (35-105); Anion Gap 13.9 (5-19); Aspartate Amino Transferase 13 U/L (0-32); Blood Urea Nitrogen 8 mg/dL (6-20); Calcium 8.9 mg/dL (8.5-10.5); Carbon Dioxide 25 mmol/L (22-29); Chloride 104 mmol/L (98-107); Globulin 2.8 g/dL (1.3-4.6); Glomerular Filtration Rate 78.3 mL/min (90-130); Glucose 108 mg/dL (65-115); Osmolality Calculated 287 mOsm/kg (285-295); Potassium 3.9 mmol/L (3.5-5.1); Sodium 139 mmol/L (136-145); Total Bilirubin 0.2 mg/dL (0.15-1.2); Total Protein 6.6 g/dL (6.6-8.7)
[2024-02-10 09:46] LABS: Troponin(5th) Baseline 9 ng/L (0-10)
[2024-02-10 10:19] VITALS: BP 129/71; PULSE 54; O2SAT 98
--- NOTE | 2024-02-10 10:51 | ECG_ITS ---
[facility] Test Date: 2024-02-10 Pat Name: Leny Hinojosa Department: Room: Gender: Female Plugman: : 1980 Requested By: Thania Concepcion Order Number: [id number] Benjamin MD: Ajay Huizar M.D. Measurements Intervals [place] Rate: 50 P: 5 MN: 132 QRS: 40 QRSD: 90 T: 17 QT: 428 QTc: 394 Interpretive Statements SINUS BRADYCARDIA Compared to ECG 02/10/2024 09:04:10 Sinus rhythm no longer present Electronically Signed On 02-10-2024 10:56:47 CDT by Ajay Huizar M.D. [email or web address]/store/[id number]
== END 2024-02-10 12:00 | disposition left against medical advice (07) ==
PROVIDERS: Emergency Provider Physician Assistant; PCP Nurse Practitioner Family
DX: R07.9 Chest pain, unspecified (principal); Z53.21 Procedure and treatment not carried out due to patient leaving prior to being seen by health care provider; Z87.891 Personal history of nicotine dependence
CPT/HCPCS: 36415; 71045; 80053; 84484; 85025; 93005; 99285

== ENCOUNTER → 2024-06-17 16:09 | Outpatient (BNVA) | payer MEDICAID, SELFPAY | PROVIDERS: PCP Nurse Practitioner Family; Visit Provider Nurse Practitioner | DX: Z12.72 Encounter for screening for malignant neoplasm of vagina (principal) | CPT/HCPCS: 88175 ==

== ENCOUNTER 2024-07-23 08:46 | Outpatient (CLI) | payer MEDICAID, SELFPAY ==
--- NOTE | 2024-07-23 08:56 | US_ITS ---
WS: [id number] BILATERAL 3D TOMOSYNTHESIS DIGITAL DIAGNOSTIC MAMMOGRAPHY WITH CAD CLINICAL INFORMATION: R92.8 - Other abnormal and inconclusive findings on diagn... HISTORY: LEFT breast pain COMPARISON: 2021 TECHNIQUE: Bilateral CC, MLO, and ML views. FINDINGS: The breasts are composed of heterogeneous fibroglandular density, which can limit the detection of sm all underlying mass lesions. Breast parenchyma similar appearance to previous. Ultrasound LEFT breast pending. ULTRASOUND BREAST LEFT TECHNIQUE: Ultrasound left breast focused area of concern. CLINICAL INFORMATION: R92.8 - Other abnormal and inconclusive findings on diagn... COMPARISON: 2021 FINDINGS: Ultrasound LEFT breast with attention to the previous areas and entire LEFT breast. Hypoechoic ovoid nodule at 2 o'clock position measuring 10 x 6 mm 1 cm from the nipple is unchanged c ompared to previous. New small ovoid hypoechoic nodule at the 4 o'clock position 2 cm from the nipple measuring 6 x 5 mm. No other suspicious findings. Incidental cyst 3 o'clock position 1 cm from the nipple measuring 8 x 6 mm Incidental tiny cyst at the 5 o'clock position 2 cm from the nipple measuring 5 x 6 mm US/US breast BI limited* [id number] IMPRESSION: DENSITY: The breasts are heterogeneously dense, which may obscure small masses. BI-RADS: 3 - Probably Benign FOLLOW UP: 6 Month Follow-up Recommend 6-month follow-up LEFT breast diagnostic mammography and ultrasound w ith attention to the small ovoid hypoechoic nodules at the 2:00 and 4:00 positi ons described above.
--- NOTE | 2024-07-23 09:00 | MM_ITS ---
WS: [id number] BILATERAL 3D TOMOSYNTHESIS DIGITAL DIAGNOSTIC MAMMOGRAPHY WITH CAD CLINICAL INFORMATION: R92.8 - Other abnormal and inconclusive findings on diagn... HISTORY: LEFT breast pain COMPARISON: 2021 TECHNIQUE: Bilateral CC, MLO, and ML views. FINDINGS: The breasts are composed of heterogeneous fibroglandular density, which can limit the detection of sm all underlying mass lesions. Breast parenchyma similar appearance to previous. Ultrasound LEFT breast pending. ULTRASOUND BREAST LEFT TECHNIQUE: Ultrasound left breast focused area of concern. CLINICAL INFORMATION: R92.8 - Other abnormal and inconclusive findings on diagn... COMPARISON: 2021 FINDINGS: Ultrasound LEFT breast with attention to the previous areas and entire LEFT breast. Hypoechoic ovoid nodule at 2 o'clock position measuring 10 x 6 mm 1 cm from the nipple is unchanged c ompared to previous. New small ovoid hypoechoic nodule at the 4 o'clock position 2 cm from the nipple measuring 6 x 5 mm. No other suspicious findings. Incidental cyst 3 o'clock position 1 cm from the nipple measuring 8 x 6 mm Incidental tiny cyst at the 5 o'clock position 2 cm from the nipple measuring 5 x 6 mm MM/MM diag tomosynthesis [id number] IMPRESSION: DENSITY: The breasts are heterogeneously dense, which may obscure small masses. BI-RADS: 3 - Probably Benign FOLLOW UP: 6 Month Follow-up Recommend 6-month follow-up LEFT breast diagnostic mammography and ultrasound w ith attention to the small ovoid hypoechoic nodules at the 2:00 and 4:00 positi ons described above.
== END 2024-07-23 08:47 | disposition home or self-care (01) ==
PROVIDERS: PCP Nurse Practitioner; Visit Provider Nurse Practitioner
DX: N63.22 Unspecified lump in the left breast, upper inner quadrant (principal); N63.24 Unspecified lump in the left breast, lower inner quadrant
CPT/HCPCS: 76642; 77062; G0279

== ENCOUNTER 2025-01-21 09:43 | Outpatient (CLI) | payer MEDICAID, SELFPAY ==
--- NOTE | 2025-01-21 10:00 | MM_ITS ---
WS: [id number] LEFT 3D TOMOSYNTHESIS DIGITAL MAMMOGRAPHY WITH CAD CLINICAL INFORMATION: N63.20 - Unspecified lump in the left breast, unspecified... HISTORY: 6-month follow-up COMPARISON: 2023 TECHNIQUE: 3 views of the left breast were obtained. FINDINGS: The left breast is composed of heterogeneous fibroglandular density tissue, which can limit the detection of small underlying mass lesions. The breast parenchymal pattern is similar in appearance. No new findings. Ultrasound described below. ULTRASOUND BREAST LEFT TECHNIQUE: Ultrasound left breast focused area of concern. CLINICAL INFORMATION: N63.20 - Unspecified lump in the left breast, unspecified... FINDINGS: Attention to the previously described areas at 2:00 3:00 4:00 and 5:00. Hypoechoic ovoid nodule at 2:00 is stable measuring 9 x 6 x 5 mm. Small hypoechoic nodule at 4:00 2 cm from the nipple measuring 5 mm is stable. Incidental cysts at 3:00 and 5:00 are unchanged. [facility] [id number] IMPRESSION: DENSITY: The breasts are heterogeneously dense, which may obscure small masses. BI-RADS: 3 - Probably Benign FOLLOW UP: 6 Month Follow-up Recommend 6-month follow-up LEFT breast diagnostic mammography and ultrasound w ith attention to the 2:00 and 4:00 lesions
--- NOTE | 2025-01-21 10:30 | US_ITS ---
WS: [id number] LEFT 3D TOMOSYNTHESIS DIGITAL MAMMOGRAPHY WITH CAD CLINICAL INFORMATION: N63.20 - Unspecified lump in the left breast, unspecified... HISTORY: 6-month follow-up COMPARISON: 2023 TECHNIQUE: 3 views of the left breast were obtained. FINDINGS: The left breast is composed of heterogeneous fibroglandular density tissue, which can limit the detection of small underlying mass lesions. The breast parenchymal pattern is similar in appearance. No new findings. Ultrasound described below. ULTRASOUND BREAST LEFT TECHNIQUE: Ultrasound left breast focused area of concern. CLINICAL INFORMATION: N63.20 - Unspecified lump in the left breast, unspecified... FINDINGS: Attention to the previously described areas at 2:00 3:00 4:00 and 5:00. Hypoechoic ovoid nodule at 2:00 is stable measuring 9 x 6 x 5 mm. Small hypoechoic nodule at 4:00 2 cm from the nipple measuring 5 mm is stable. Incidental cysts at 3:00 and 5:00 are unchanged. US/US breast LT limited* [id number] IMPRESSION: DENSITY: The breasts are heterogeneously dense, which may obscure small masses. BI-RADS: 3 - Probably Benign FOLLOW UP: 6 Month Follow-up Recommend 6-month follow-up LEFT breast diagnostic mammography and ultrasound w ith attention to the 2:00 and 4:00 lesions
== END 2025-01-21 09:44 | disposition home or self-care (01) ==
PROVIDERS: PCP Nurse Practitioner; Visit Provider Nurse Practitioner
DX: N63.21 Unspecified lump in the left breast, upper outer quadrant (principal); R92.332 Mammographic heterogeneous density, left breast; N63.23 Unspecified lump in the left breast, lower outer quadrant; N60.12 Diffuse cystic mastopathy of left breast
CPT/HCPCS: 76642; 77061; G0279

== ENCOUNTER → 2025-04-03 12:44 | Outpatient (BNVA) | payer MEDICAID, SELFPAY | PROVIDERS: PCP Nurse Practitioner; Visit Provider Emergency Medicine | DX: M25.532 Pain in left wrist (principal) | CPT/HCPCS: 73110 ==

== ENCOUNTER 2025-04-11 13:30 | Outpatient (CLI) | payer MEDICAID, SELFPAY ==
--- NOTE | 2025-04-11 14:15 | XRR_ITS ---
PROCEDURE INFORMATION: Exam: XR Left Wrist Exam date and time: 04/11/2025 2:28 PM Age: 44 years old Clinical indication: Pain; Wrist; Left; Additional info: Wrist trauma TECHNIQUE: Imaging protocol: Radiologic exam of the left wrist. Views: 3 or more views. COMPARISON: CR XR wrist LT min 3V* [id number] 04/03/2025 12:47 PM FINDINGS: Bones/joints: Normal. Soft tissues: Normal. XR/XR wrist LT min 3V* [id number] IMPRESSION: No acute findings.
== END 2025-04-11 13:31 | disposition home or self-care (01) ==
PROVIDERS: PCP Nurse Practitioner; Visit Provider Emergency Medicine
DX: M12.532 Traumatic arthropathy, left wrist (principal)
CPT/HCPCS: 73110

== ENCOUNTER → 2025-04-20 09:10 | Outpatient (BNVA) | payer MEDICAID, SELFPAY | PROVIDERS: PCP Nurse Practitioner; Visit Provider Orthopaedic Surgery | DX: M25.532 Pain in left wrist (principal) | CPT/HCPCS: 73110 ==

== ENCOUNTER 2025-04-30 08:50 | Outpatient (CLI) | payer MEDICAID, SELFPAY ==
--- NOTE | 2025-04-30 09:30 | MRR_ITS ---
PROCEDURE INFORMATION: Exam: MR Left Upper Extremity Joint Without Contrast; Wrist Exam date and time: 04/30/2025 9:19 AM Age: 44 years old Clinical indication: Injury or trauma; Other: Lifting injury; Sprain or strain; Wrist; Left; Additional info: Left wrist pain, possible left wrist flexor carpi ulnaris tear or tfcc tear TECHNIQUE: Imaging protocol: Magnetic resonance imaging of the left upper extremity without contrast. Exam focused on the wrist. COMPARISON: CR XR wrist LT min 3V* [id number] 04/20/2025 9:16 AM FINDINGS: Bones/joints: Normal bone marrow signal. Trace fluid with mild debris/synovitis inferomedial to the triquetrum, and possibly insinuating into the pisotriquetral joint. Of note, no distinct pisotriquetral degenerative changes within the limitations of this modality. Scapholunate ligament: Unremarkable. No tear. Lunotriquetral ligament: Unremarkable. No tear. Triangular fibrocartilage complex: The triangular fibrocartilage is intact. There is mild inflammatory change at the distal attachment and around the meniscal homologue. Flexor compartment tendons: Unremarkable. No tear. Extensor compartment tendons: The ECU is probably mildly tendinotic specifically as it crosses over the triquetrum. Trace ECU subsheath fluid. Soft tissues: Moderate increased soft tissue edema in the triangular fibrocartilage homework structure/distal component.. MR/MR wrist LT wo con* [id number] IMPRESSION: Findings are consistent with triangular fibrocartilage complex low-grade sprain. The triangular fibrocartilage disc proper is intact. Suspect low-grade meniscus homologue tear , probable mild ECF subsheath irritation or low-grade tear. Possible low-grade ulnotriquetral ligament tear.
== END 2025-04-30 08:51 | disposition home or self-care (01) ==
LOC: RAD 08:51
PROVIDERS: PCP Nurse Practitioner; Visit Provider Orthopaedic Surgery
DX: M25.532 Pain in left wrist (principal)
CPT/HCPCS: 73221

== ENCOUNTER 2025-07-18 11:14 | Outpatient (CLI) | payer MEDICAID, SELFPAY ==
--- NOTE | 2025-07-18 11:26 | XRR_ITS ---
PROCEDURE INFORMATION: Exam: XR Right Shoulder Exam date and time: 07/18/2025 11:30 AM Age: 44 years old Clinical indication: Pain; Shoulder; Right; Additional info: M25.511 - pain in right shoulder TECHNIQUE: Imaging protocol: Radiologic exam of the right shoulder. Views: 2 or more views. COMPARISON: CR XR chest 1V portable [id number] 02/10/2024 9:20 AM FINDINGS: Bones/joints: Normal. Soft tissues: Normal. XR/XR shoulder RT min 2V* [id number] IMPRESSION: No acute findings.
== END 2025-07-18 11:15 | disposition home or self-care (01) ==
PROVIDERS: PCP Nurse Practitioner; Visit Provider Nurse Practitioner
DX: M25.511 Pain in right shoulder (principal)
CPT/HCPCS: 73030

== ENCOUNTER 2025-08-10 08:56 | Outpatient (CLI) | payer MEDICAID, SELFPAY ==
--- NOTE | 2025-08-10 09:30 | MR_ITS ---
WS: [id number] MRI RIGHT SHOULDER HISTORY: M25.511 - Pain in right shoulder COMPARISON: Radiograph 07/18/2025 TECHNIQUE: Multiplanar sequences of the shoulder joint are submitted. Moderate AC joint arthritis. Mild hypertrophic bone formation and synovial thickening. Mild encroachment upon the myotendinous supraspinatus. No significant amount of fluid in the subacromial subdeltoid bursa. Mild subacromial impingement. No os acromion. Normal position of the biceps tendon. No muscle atrophy or edema. No rotator cuff tendon tear. There is mild tendinopathy in the distal supraspinatus tendon. Mild narrowing of the glenohumeral joint. Subchondral cyst in the medial humeral head. No labral tears are identified. There is a small amount of fluid associated with the distal subs capularis tendon. The tendon does not appear torn. MR/MR shoulder RT wo con* [id number] IMPRESSION: 1. Moderate AC joint arthritis. 2. No rotator cuff tendon tears. 3. Mild tendinopathy in the distal supraspinatus. 4. Mild narrowing of the glenohumeral joint. 5. No labral tear identified.
== END 2025-08-10 08:57 | disposition home or self-care (01) ==
LOC: RAD 08:57
PROVIDERS: PCP Nurse Practitioner; Visit Provider Nurse Practitioner
DX: M19.011 Primary osteoarthritis, right shoulder (principal); M75.41 Impingement syndrome of right shoulder
CPT/HCPCS: 73221